=== PATIENT | male | born 1975 | race Caucasian/White ===

== ENCOUNTER 2021-03-01 15:22 | Emergency (ER) | payer OTHER ==
[~2021-03-01] VITALS: Ht 182.9 cm; Wt 93.0 kg
[2021-03-01 15:34] VITALS: BP 129/57
--- NOTE | 2021-03-01 15:38 | NUR ---
JULIETTE Lacey with pt for further evaluation.
--- NOTE | 2021-03-01 15:48 | NUR ---
Pt taken to ER bed 12.
--- NOTE | 2021-03-01 15:58 | NUR ---
46 Y/O MALE C/O RIGHT KNEE 01/24 DESCRIBES SHARP WHEN BEARING WEIGHT OR AMBULATING RADIATING TO RIGHT FOOT X 1DAY. PT DENIES TRAUMA/INJURY. PT DENIES FEVER/CHILLS, DENIES N/V. PMH: CHRONIC BACK PAIN NKA
--- NOTE | 2021-03-01 16:02 | NUR ---
technical support 1 software engineer at pt bedside.
--- NOTE | 2021-03-01 16:33 | NUR ---
US at pt bedside.
--- NOTE | 2021-03-01 17:03 | NUR ---
APPLIED KNEE IMMOBOLIZER TO RIGHT KNEE WITHOUT ANY ISSUES
[2021-03-01] MEDS ORDERED: NAPR-54 PO (17:17)
[2021-03-01 17:24] VITALS: BP 121/61
== END 2021-03-01 17:24 | disposition home or self-care (01) ==
LOC: MED 15:22
DX: S83.91XA Sprain of unspecified site of right knee, initial encounter (principal); Z79.899 Other long term (current) drug therapy; Z98.890 Other specified postprocedural states; X58.XXXA Exposure to other specified factors, initial encounter; Y93.89 Activity, other specified; Y92.89 Other specified places as the place of occurrence of the external cause; Y99.8 Other external cause status
CPT/HCPCS: 29505; 73562; 93971; 99285